=== PATIENT | female | born 1980 | race Caucasian/White ===

== ENCOUNTER 2022-06-17 17:43 | Emergency (ER) | payer BC, MEDICAID ==
[~2022-06-17] VITALS: Ht 157.5 cm; Wt 80.6 kg
[2022-06-17 17:48] VITALS: BP 129/87
[2022-06-17] MEDS ORDERED: ACETAMINOPHEN 325MG TABLET PO ONE (20:00)
[2022-06-17] MEDS ORDERED: ACET15SO5 RIGHT EAR (22:15)
== END 2022-06-17 22:28 | disposition home or self-care (01) ==
LOC: ER 17:43
DX: R51.9 Headache, unspecified (principal); H92.01 Otalgia, right ear; E11.9 Type 2 diabetes mellitus without complications; Z88.1 Allergy status to other antibiotic agents
CPT/HCPCS: 99284